=== PATIENT | female | born 1995 ===

== ENCOUNTER → 2017-08-15 | Outpatient (CLI) | payer OTHER | LOC: BMCIMAGING 10:04 | PROVIDERS: ATTEND Emergency Medicine | DX: S59.902A Unspecified injury of left elbow, initial encounter (principal); S99.921A Unspecified injury of right foot, initial encounter; M25.532 Pain in left wrist; W19.XXXA Unspecified fall, initial encounter ==

== ENCOUNTER → 2017-12-12 | Outpatient (CLI) | payer OTHER | LOC: BMCIMAGING 16:36 | PROVIDERS: ATTEND Family Medicine | DX: S93.402A Sprain of unspecified ligament of left ankle, initial encounter (principal) ==